=== PATIENT | female | born 1950 | race Caucasian/White ===

== ENCOUNTER 2016-10-01 08:00 | Outpatient (CLI) | payer MEDICARE | END 2016-10-01 08:01 | disposition home or self-care (01) | DX: Z87.19 Personal history of other diseases of the digestive system (principal); G60.9 Hereditary and idiopathic neuropathy, unspecified ==

== ENCOUNTER 2016-10-02 08:15 | Outpatient (CLI) | END 2016-10-02 08:16 | disposition home or self-care (01) ==

== ENCOUNTER 2016-11-19 10:35 | Outpatient (CLI) | payer MEDICARE | END 2016-11-19 10:36 | disposition home or self-care (01) | DX: M25.551 Pain in right hip (principal) ==

== ENCOUNTER 2016-12-04 11:36 | Outpatient (CLI) | payer MEDICARE | END 2016-12-04 11:37 | disposition home or self-care (01) | DX: M25.50 Pain in unspecified joint (principal); M79.1 Myalgia ==

== ENCOUNTER 2016-12-19 15:33 | Outpatient (CLI) | payer MEDICARE | END 2016-12-19 15:34 | disposition home or self-care (01) | DX: G60.9 Hereditary and idiopathic neuropathy, unspecified (principal); M25.50 Pain in unspecified joint ==

== ENCOUNTER 2016-12-24 05:30 | Outpatient (CLI) | payer MEDICARE | END 2016-12-24 05:31 | DX: Z87.19 Personal history of other diseases of the digestive system (principal) ==

== ENCOUNTER 2017-03-10 08:00 | Outpatient (CLI) | payer MEDICARE | END 2017-03-10 23:59 | disposition home or self-care (01) | LOC: LAB.R 08:00 | PROVIDERS: ATTEND Physician Assistant Medical | DX: R19.5 Other fecal abnormalities (principal) | CPT/HCPCS: 81256; 82270 ==

== ENCOUNTER 2017-05-05 14:42 | Outpatient (CLI) | payer MEDICARE | END 2017-05-05 14:43 | disposition home or self-care (01) | LOC: LAB.F 14:42 | PROVIDERS: ATTEND Physician Assistant Medical | DX: E55.9 Vitamin D deficiency, unspecified (principal) | CPT/HCPCS: 36415; 82306 ==

== ENCOUNTER 2017-06-08 14:02 | Outpatient (CLI) | payer MEDICARE | END 2017-06-08 14:03 | disposition home or self-care (01) | LOC: LAB.F 14:02 | PROVIDERS: ATTEND Physician Assistant Medical | DX: E55.9 Vitamin D deficiency, unspecified (principal); G60.9 Hereditary and idiopathic neuropathy, unspecified | CPT/HCPCS: 36415; 82607 ==

== ENCOUNTER 2017-06-30 13:37 | Outpatient (CLI) | payer MEDICARE ==
--- NOTE | 2017-07-01 16:03 | Mammography Report ---
DIGITAL SCREENING MAMMOGRAM: 06/30/2017 CLINICAL INDICATION: A 67-year-old, for screening. COMPARISON: 12/2014, 10/2013, 03/2011, 12/2009, 09/2008. TECHNIQUE: Routine CC and MLO projections were obtained of the breasts. Bilateral laterally exaggera elvis craniocaudal views. FINDINGS: Scattered fibroglandular tissue is present within the breasts. There are no dominant zaire s, suspicious microcalcifications, or secondary signs of malignancy. In comparison to the previous st udies, there are no significant changes. ASSESSMENT: NO MAMMOGRAPHIC EVIDENCE OF MALIGNANCY. NO SIGNIFICANT INTERVAL CHANGES. RECOMMENDATION: Screening mammography is recommended annually. BIRADS category 1 - negative. STANDARD QUALIFYING STATEMENTS 1. This examination was reviewed with the aid of Computed-Aided Detection (CAD). 2. A negative or benign imaging report should not delay biopsy if clinically suspicious findings are present. Consider surgical consultation if warranted. More than 5% of cancers are not identified by i maging. 3. Dense breasts may obscure an underlying neoplasm. JOB #: [id number] EXT JOB #:[id number]
== END 2017-06-30 13:38 | disposition home or self-care (01) ==
LOC: DI.S 13:37
PROVIDERS: ATTEND Physician Assistant Medical
DX: Z12.31 Encounter for screening mammogram for malignant neoplasm of breast (principal)
CPT/HCPCS: 77067

== ENCOUNTER 2017-10-27 12:55 | Outpatient (CLI) | payer MEDICARE ==
[2017-10-27 17:36] LABS: BASOPHILS % (AUTO) 0.5 %; EOSINOPHILS # (AUTO) 0.1 10^3/uL (0.0-0.7); EOSINOPHILS % (AUTO) 1.8 %; HGB - HEMOGLOBIN 13.7 g/dL (12.0-16.0); LYMPHOCYTES # (AUTO) 2.9 10^3/uL (1.5-3.5); LYMPHOCYTES % (AUTO) 39.7 %; MEAN CORPUSCULAR HEMOGLOBIN 28.4 pg (27.0-31.0); MEAN CORPUSCULAR HGB CONC 32.5 g/dL (32.0-36.0); MEAN CORPUSCULAR VOLUME 87.4 fL (81.0-99.0); MEAN PLATELET VOLUME 7.4 fL (7.9-10.8); MONOCYTES # (AUTO) 0.6 10^3/uL (0.0-1.0); MONOCYTES % (AUTO) 7.9 %; NEUTROPHILS # (AUTO) 3.6 10^3/uL (1.5-6.6); NEUTROPHILS % (AUTO) 50.1 %; PLT - PLATELET COUNT 285 10^3/uL (130-450); RED BLOOD COUNT 4.81 10^6/uL (4.20-5.40); RED CELL DISTRIBUTION WIDTH 14.9 % (12.0-15.0); WHITE BLOOD COUNT 7.2 x10^3/uL (4.8-10.8)
[2017-10-27 18:07] LABS: ALBUMIN/GLOBULIN RATIO 0.9 (1.0-2.2); BILIRUBIN,TOTAL 0.5 mg/dL (0.2-1.0); CALCIUM 9.1 mg/dL (8.5-10.3); CREATININE 0.7 mg/dL (0.4-1.0); TOTAL PROTEIN 8.4 g/dL (6.7-8.2)
== END 2017-10-27 12:56 | disposition home or self-care (01) ==
LOC: LAB.F 12:55
PROVIDERS: ATTEND Physician Assistant Medical
DX: I10 Essential (primary) hypertension (principal)
CPT/HCPCS: 36415; 80053; 85025

== ENCOUNTER 2018-08-12 14:48 | Outpatient (CLI) | payer MEDICARE ==
--- NOTE | 2018-08-12 21:38 | Ultrasound Report ---
Reason: PAIN IN LEFT LOWER LEG Procedure Date: 08/12/2018 Accession Number: [id number] / [id number] Procedure: US - Duplex Ext Veins Left CPT Code: FULL RESULT: EXAM: LEFT LOWER EXTREMITY VENOUS ULTRASOUND EXAM DATE: 08/12/2018 03:46 PM. CLINICAL HISTORY: PAIN IN LEFT LOWER LEG. COMPARISON: 08/06/2014. TECHNIQUE: Real-time sonographic vascular imaging was performed by the market research senior project manager through the lower extremity utilizing both color-flow and Doppler spectral analysis. Multiple patient access representative static images were saved for review. FINDINGS: Common Femoral Vein (CFV): Normal. CFV-GSV Junction: Normal. Profunda Femoral Vein (PFV): Normal. Femoral Vein (FV) Prox: Normal. Femoral Vein (FV) Mid: Normal. Femoral Vein (FV) Dist: Normal. Popliteal Vein: Normal. Posterior Tibial Veins: Normal. Peroneal Veins: Normal. Other: None. IMPRESSION: No evidence for deep venous thrombosis. Resolution of previously seen DVT. RADIA
== END 2018-08-12 14:49 | disposition home or self-care (01) ==
LOC: DI 14:48
PROVIDERS: ATTEND Physician Assistant Medical
DX: M79.662 Pain in left lower leg (principal)

== ENCOUNTER 2018-08-25 08:00 | Outpatient (CLI) | payer MEDICARE | END 2018-08-25 08:01 | disposition home or self-care (01) | LOC: LAB.F 08:00 | PROVIDERS: ATTEND Physician Assistant Medical | DX: G60.9 Hereditary and idiopathic neuropathy, unspecified (principal) | CPT/HCPCS: 36415; 82607 ==

== ENCOUNTER 2018-08-27 19:41 | Outpatient (CLI) | payer MEDICARE ==
--- NOTE | 2018-08-28 23:03 | Ultrasound Report ---
Reason: ABDOMINAL PAIN, RUQ Procedure Date: 08/27/2018 Accession Number: [id number] / [id number] Procedure: US - Abdomen Limited CPT Code: FULL RESULT: EXAM: ABDOMEN ULTRASOUND LIMITED, RUQ EXAM DATE: 08/27/2018 08:19 PM. CLINICAL HISTORY: Abdominal pain, right upper quadrant. COMPARISON: None. TECHNIQUE: Real-time scanning was performed with static images obtained. FINDINGS: Liver: Enlarged, with hyperechoic echotexture. 21.7 cm. Main portal vein flow: Hepatopetal. Gallbladder: Normal. No stones, wall thickening, or sonographic Erickson's sign. Biliary System: CBD measures 4 mm. No intrahepatic or extrahepatic ductal dilatation. Other: The visualized pancreas and right kidney are unremarkable. No free fluid. IMPRESSION: 1. Unremarkable gallbladder and ducts. 2. Hepatic steatosis. RADIA
== END 2018-08-27 19:42 | disposition home or self-care (01) ==
LOC: DI 19:41
PROVIDERS: ATTEND Physician Assistant Medical
DX: R10.11 Right upper quadrant pain (principal); K76.0 Fatty (change of) liver, not elsewhere classified
CPT/HCPCS: 76705

== ENCOUNTER 2018-11-17 07:44 | Outpatient (CLI) | payer MEDICARE ==
[2018-11-17 10:14] LABS: BASOPHILS % (AUTO) 0.3 %; EOSINOPHILS # (AUTO) 0.1 10^3/uL (0.0-0.7); EOSINOPHILS % (AUTO) 1.8 %; LYMPHOCYTES # (AUTO) 2.4 10^3/uL (1.5-3.5); LYMPHOCYTES % (AUTO) 32.7 %; MEAN CORPUSCULAR HEMOGLOBIN 28.5 pg (27.0-31.0); MEAN CORPUSCULAR HGB CONC 32.8 g/dL (32.0-36.0); MEAN PLATELET VOLUME 7.3 fL (7.9-10.8); MONOCYTES # (AUTO) 0.6 10^3/uL (0.0-1.0); NEUTROPHILS # (AUTO) 4.2 10^3/uL (1.5-6.6); NEUTROPHILS % (AUTO) 57.2 %; PLT - PLATELET COUNT 248 10^3/uL (130-450); RED BLOOD COUNT 4.57 10^6/uL (4.20-5.40); RED CELL DISTRIBUTION WIDTH 15.4 % (12.0-15.0); WHITE BLOOD COUNT 7.3 x10^3/uL (4.8-10.8)
[2018-11-17 10:31] LABS: ALBUMIN 3.8 g/dL (3.2-5.5); ALBUMIN/GLOBULIN RATIO 0.9 (1.0-2.2); ALKALINE PHOSPHATASE 68 IU/L (42-121); ALT ALANINE AMINOTRANSFERASE 32 IU/L (10-60); AST ASPARTATE AMINOTRANSFERASE 34 IU/L (10-42); BILIRUBIN,TOTAL 1.1 mg/dL (0.2-1.0); BUN - BLOOD UREA NITROGEN 19 mg/dL (6-20); CALCIUM 9.1 mg/dL (8.5-10.3); CARBON DIOXIDE - CO2 29 mmol/L (21-32); CHLORIDE 97 mmol/L (101-111); CHOL/HDL RATIO 3.5 (<4.4); CHOLESTEROL 199 mg/dL; CREATININE 0.6 mg/dL (0.4-1.0); GFR - MDRD 100 (>89); GLUCOSE 129 mg/dL (70-100); HDL CHOLESTEROL 57 mg/dL; LDL CHOLESTEROL,CALCULATED 97 mg/dL; LDL/HDL RATIO 1.7 (<4.4); SODIUM 138 mmol/L (135-145); TOTAL PROTEIN 8.2 g/dL (6.7-8.2); VLDL CHOLESTEROL 45 mg/dL
== END 2018-11-17 07:45 | disposition home or self-care (01) ==
LOC: LAB.F 07:44
PROVIDERS: ATTEND Physician Assistant Medical
DX: I10 Essential (primary) hypertension (principal); E78.5 Hyperlipidemia, unspecified; G62.9 Polyneuropathy, unspecified
CPT/HCPCS: 36415; 80053; 80061; 82607; 83721; 85025

== ENCOUNTER 2019-11-04 09:59 | Outpatient (CLI) | payer MEDICARE ==
--- NOTE | 2019-11-04 21:54 | XRAY Report ---
Reason: LOW BACK PAIN Procedure Date: 11/04/2019 Accession Number: [id number] / [id number] Procedure: XRS - Lumbar Spine 2 View CPT Code: Final Report FULL RESULT: EXAM: LUMBOSACRAL SPINE RADIOGRAPHY EXAM DATE: 11/04/2019 10:50 AM. CLINICAL HISTORY: LOW BACK PAIN. COMPARISONS: HIP BILAT 11/19/2016 11:00 AM. TECHNIQUE: 3 views. FINDINGS: Alignment: Normal. No spondylolisthesis or scoliosis. Bones: Five wax-[id number]-[id number] lumbar vertebral bodies are present. No fractures or bone lesions. Disks: Loss of disk height from L3-S1 with endplate sclerosis. Most pronounced at L4-L5 and L5-S1. Grade 1 anterolisthesis of L4 over L5. Suggestion of severe bilateral neural foraminal and spinal canal stenosis at L4-L5 and L5-S1. Bilateral facet arthropathy from L3-S1 levels Sacroiliac Joints: Unremarkable. Soft Tissues: Normal. The visualized bowel gas pattern is normal. IMPRESSION: No acute displaced fracture or malalignment. Degenerative changes with grade 1 anterolisthesis of L4 over L5. Bilateral facet arthropathy with suggestion of severe bilateral neural foraminal and spinal canal stenosis at L4-L5 and L5-S1. RADIA
--- NOTE | 2019-11-07 07:33 | XRAY Report ---
Reason: LOW BACK PAIN Procedure Date: 11/04/2019 Accession Number: [id number] / [id number] Procedure: XRS - SI Joints CPT Code: Final Report FULL RESULT: EXAM: SACROILIAC JOINT RADIOGRAPHY 4 VIEWS EXAM DATE: 11/04/2019 . CLINICAL HISTORY: Low-back pain. COMPARISON: Lumbar spine radiography done 11/04/2019. TECHNIQUE: AP, cephalad angulated AP and oblique views. FINDINGS: Bones: Normal. No fracture or bone lesion. Joints: Sacroiliac joints are normal in width. No ankylosis or erosion. The hips appear normal. Soft Tissues: Normal. IMPRESSION: Normal sacroiliac joint radiography. RADIA
== END 2019-11-04 10:00 | disposition home or self-care (01) ==
LOC: DI.S 09:59
PROVIDERS: ATTEND Registered Nurse
DX: M51.36 Other intervertebral disc degeneration, lumbar region (principal); M51.37 Other intervertebral disc degeneration, lumbosacral region; M47.816 Spondylosis without myelopathy or radiculopathy, lumbar region; M47.817 Spondylosis without myelopathy or radiculopathy, lumbosacral region; M43.16 Spondylolisthesis, lumbar region
CPT/HCPCS: 72100; 72202

== ENCOUNTER 2020-05-14 14:05 | Outpatient (CLI) | payer MEDICARE ==
--- NOTE | 2020-05-15 08:29 | Mammography Report ---
BILATERAL DIGITAL SCREENING MAMMOGRAM 3D/2D: 05/14/2020 CLINICAL: Routine screening. Comparison is made to exams dated: 06/30/2017 mammogram, 01/11/2015 mammogram, 11/23/2013 mammogram, 07/2011 mammogram, and 01/02/2010 mammogram - [facility]. The tissue of both breasts is predominantly fatty. There is a focal asymmetry in the left breast at 1 o'clock middle depth. No other significant masses, calcifications, or other findings are seen in either breast. IMPRESSION: INCOMPLETE: NEEDS ADDITIONAL IMAGING EVALUATION The focal asymmetry in the left breast is indeterminate. Additional views with possible ultrasound a re recommended. This exam was interpreted at Station ID: [id number]. NOTE: For mammograms, a report in lay terms will be sent to the patient. Approximately 15% of breast malignancies will not be visualized mammographically. In the management of a palpable breast mass, a negative mammogram must not discourage biopsy of a clinically suspicious lesion. Electronically Signed By: Rashida Upton M.D. lk/:05/14/2020 15:20:23 ACR BI-RADS Category 0: Incomplete 3340F PARENCHYMAL PATTERN: (F) - The breast(s) demonstrate(s) diffuse fatty replacement. BI-RADS CATEGORY: (0) - 0 Mammo and US [id number] Immediate follow-up LATERALITY: (B)
== END 2020-05-14 14:06 | disposition home or self-care (01) ==
LOC: DI 14:05
PROVIDERS: ATTEND Physician Assistant
DX: Z12.31 Encounter for screening mammogram for malignant neoplasm of breast (principal); R92.8 Other abnormal and inconclusive findings on diagnostic imaging of breast
CPT/HCPCS: 77063; 77067

== ENCOUNTER 2020-05-21 14:13 | Outpatient (CLI) | payer MEDICARE ==
--- NOTE | 2020-05-21 17:51 | DEXA Report ---
PROCEDURE: Dexa Spine and/or Hip INDICATIONS: MENOPAUSAL STATE TECHNIQUE: Dual energy x-ray absorptiometry (DXA) was performed on a [employer] System. Regions measur ed are the AP Spine, femoral neck, and if needed forearm. COMPARISON: None. FINDINGS: Lumbar Spine: Bone Mineral Density 1.482 g/cm/cm,T score 2.5, normal Left Hip: Bone Mineral Density 1.135 g/cm/cm,T score 1.0, normal Left Femoral Neck: Bone Mineral Density 1.030 g/cm/cm, T score -0.1, normal (T score greater or equal to -1.0: NORMAL) (T score from -1.1 to -2.4: OSTEOPENIA) (T score less than or equal to -2.5 to: OSTEOPOROSIS) Impression: Normal bone density. Patients with diagnosis of osteoporosis or osteopenia should have regular bone mineral density assess ment. For those eligible for Medicare, routine testing is allowed once every 2 years. Testing frequ ency can be increased for patients who have rapidly progressing disease or for those who are receivin g medical therapy to restore bone mass. Reviewed by: Megha Chapin MD, PhD on 05/21/2020 5:49 PM PDT Approved by: Megha Chapin MD, PhD on 05/21/2020 5:49 PM PDT Station ID: [id number]
== END 2020-05-21 14:14 | disposition home or self-care (01) ==
LOC: DI 14:13
PROVIDERS: ATTEND Anesthesiology
DX: Z78.0 Asymptomatic menopausal state (principal)
CPT/HCPCS: 77080

== ENCOUNTER 2020-06-25 10:24 | Outpatient (CLI) | payer MEDICARE ==
--- NOTE | 2020-06-25 15:19 | Mammography Report ---
UNILATERAL LEFT DIGITAL DIAGNOSTIC MAMMOGRAM 3D/2D: 06/25/2020 CLINICAL: Patient returns today to evaluate a focal asymmetry in the left breast. Comparison is made to exams dated: 06/30/2017 mammogram, 01/11/2015 mammogram, 11/23/2013 mammogram, 07/2011 mammogram, and 05/14/2020 mammogram - [facility]. The tissue of left breast is predominantly fatty. There is a focal asymmetry in the left breast at 1 o'clock middle depth. This is less prominent. No other significant masses or calcifications are seen in the breast. IMPRESSION: INCOMPLETE: NEEDS ADDITIONAL IMAGING EVALUATION The focal asymmetry in the left breast is indeterminate. A targeted ultrasound is recommended and will immediately follow. This exam was interpreted at Station ID: [id number]. NOTE: For mammograms, a report in lay terms will be sent to the patient. Approximately 15% of breast malignancies will not be visualized mammographically. In the management of a palpable breast mass, a negative mammogram must not discourage biopsy of a clinically suspicious lesion. Electronically Signed By: Oskar Brown M.D. slc/:06/25/2020 11:30:18 ACR BI-RADS Category 0: Incomplete 3340F PARENCHYMAL PATTERN: (F) - The breast(s) demonstrate(s) diffuse fatty replacement. BI-RADS CATEGORY: (0) - 0 Ultrasound [id number] Immediate follow-up LATERALITY: (B)
--- NOTE | 2020-06-25 15:19 | Ultrasound Report ---
LIMITED ULTRASOUND OF LEFT BREAST: 06/25/2020 CLINICAL: Patient returns today to evaluate a focal asymmetry in the left breast. Comparison is made to exams dated: 06/25/2020 mammogram, 06/30/2017 mammogram, 05/14/2020 mammogram, an d 01/11/2015 mammogram - [facility]. Color flow and real-time ultrasound of the left breast 1 o'clock region were performed. Armando scale i mages of the real-time examination were reviewed. There is a 0.4 cm x 0.3 cm x 0.2 cm oval mass with an indistinct margin in the left breast at 1 o'christina ck middle depth 9 cm from the nipple. This oval mass is hyperechoic. This correlates with mammograp hy findings. Color flow imaging demonstrates that there is no vascularity present. Adjacent similar appearing mass which is less than 0.2 cm in size. IMPRESSION: PROBABLY BENIGN The 0.4 cm echogenic mass in the left breast has a differential diagnosis of an angiolipoma, fat necr osis, or fibroadenolipoma and is probably benign. A follow-up mammogram and an ultrasound in 6 months is recommended to demonstrate stability. Exam findings were conveyed to the patient. This exam was interpreted at Station ID: [id number]. Electronically Signed By: Oskar Brown M.D. slc/:06/25/2020 12:25:33 Ultrasound BI-RADS: 3 Probably benign BI-RADS CATEGORY: (3) - 3 Mammo and US [id number] 6 month follow-up LATERALITY: (B)
== END 2020-06-25 10:25 | disposition home or self-care (01) ==
LOC: DI 10:24
PROVIDERS: ATTEND Family Medicine
DX: R92.8 Other abnormal and inconclusive findings on diagnostic imaging of breast (principal); N63.21 Unspecified lump in the left breast, upper outer quadrant
CPT/HCPCS: 76642